=== PATIENT | male | born 1935 | race Caucasian/White ===

== ENCOUNTER 2022-12-21 09:29 | Outpatient (CLI) | payer MEDICARE, BC, SELFPAY ==
[2022-12-21 09:59] LABS: Basophils Absolute Auto 0.1 K/mm3 (0.0-0.1); Basophils Percent Auto 0.8 % (0.2-1.2); Eosinophils Absolute Auto 0.8 K/mm3 (0-0.3); Eosinophils Percent Auto 9.2 % (0-4.4); Hematocrit 51.5 % (42.0-52.0); Hemoglobin 16.4 g/dL (14.0-18.0); Immature Granulocyte Absolute 0.02 K/mm3 (0.00-0.031); Immature Granulocyte Percent A 0.2 % (0-0.5); Lymphocytes Absolute Auto 2.13 K/mm3 (0.9-3.2); Lymphocytes Percent Auto 25.8 % (18.3-44.2); Mean Corpuscular HGB Conc 31.8 g/dl (32-36); Mean Corpuscular Hemoglobin 30.7 pg (26-34); Mean Corpuscular Volume 96.4 fl (80-100); Mean Platelet Volume 9.6 fl (7.4-10.4); Monocytes Absolute Auto 0.8 K/mm3 (0.1-0.6); Monocytes Percent Auto 9.3 % (2.6-8.5); Neutrophils Absolute Auto 4.5 K/mm3 (1.3-6.7); Neutrophils Percent Auto 54.7 % (45.5-73.1); Platelet Count Result 225 k/mm3 (150-375); Red Blood Count 5.34 M/mm3 (4.6-6.20); Red Cell Distribution Width 14.1 % (11.5-14.5); White Blood Count 8.3 K/mm3 (4.5-10.0)
[2022-12-21 10:10] LABS: Alanine Aminotransferase 28 U/L (6-50); Albumin Level 4.3 g/dL (3.5-5.1); Alkaline Phosphatase 75 U/L (38-126); Anion Gap 9 mmol/L (8-16); Aspartate Amino Transferase 32 U/L (17-59); Bilirubin,Total 0.9 mg/dL (0.2-1.3); Blood Urea Nitrogen 18 mg/dL (9-20); Calcium 9.3 mg/dL (8.4-10.2); Carbon Dioxide 26 mmol/L (22-30); Chloride 104 mmol/L (98-107); Cholesterol 188 mg/dL (0-200); Estimated Glomerular Filt Rate 57; Glucose 101 mg/dL (65-110); HDL Direct 57 mg/dL; Potassium 3.8 mmol/L (3.4-5.0); Sodium 139 mmol/L (137-145); Triglycerides 162 mg/dL (<150)
[2022-12-21 10:21] LABS: LDL Cholesterol Direct 93 mg/dL
[2022-12-21 10:39] LABS: Total Triiodothyronine (T3) 0.83 NG/ML (0.97-1.69)
[2022-12-25 11:46] LABS: Vitamin D 1,25 (OH)2 Total 47 pg/mL (18-72); Vitamin D2 1,25 (OH)2 47 pg/mL; Vitamin D3 1,25 (OH)2 <8 pg/mL
== END 2022-12-21 09:30 | disposition home or self-care (01) ==
LOC: ANHLAB 09:29
PROVIDERS: PCP Family Medicine; Visit Provider Family Medicine
DX: E03.9 Hypothyroidism, unspecified (principal); I10 Essential (primary) hypertension; E55.9 Vitamin D deficiency, unspecified; E78.2 Mixed hyperlipidemia; E79.0 Hyperuricemia without signs of inflammatory arthritis and tophaceous disease
CPT/HCPCS: 36415; 80053; 80061; 82652; 84439; 84443; 84480; 84550; 85025

== ENCOUNTER 2023-01-15 12:02 | Outpatient (CLI) | payer MEDICARE, BC, SELFPAY ==
--- NOTE | ~2023-01-15 | XR_ITS ---
XR knee LT 3V DATE: 01/15/2023 13:13 INDICATION: Generalized left knee pain TECHNIQUE: 3 views COMPARISON: None FINDINGS: There is minimal periarticular spurring of the patella consistent with mild patellofemoral osteoarthritis. Joint spaces are relatively preserved. No fracture or dislocation or joint effusion is detected. No radiopaque intra-articular loose body or chondrocalcinosis are noted. No periosteal reaction or bone destruction. There are surgical clips along the posteromedial aspect of the knee. IMPRESSION: Mild patellofemoral osteoarthritis Reviewed, dictated and finalized at location A.
== END 2023-01-15 12:03 | disposition home or self-care (01) ==
PROVIDERS: PCP Family Medicine; Visit Provider Physician Assistant
DX: M17.12 Unilateral primary osteoarthritis, left knee (principal)
CPT/HCPCS: 73562

== ENCOUNTER 2023-08-16 11:25 | Outpatient (CLI) | payer MEDICARE, BC, SELFPAY ==
[2023-08-16 12:27] LABS: Free T4 Free Thyroxine 1.22 ng/mL (0.78-2.19)
== END 2023-08-16 11:26 | disposition home or self-care (01) ==
PROVIDERS: PCP Family Medicine; Visit Provider Physician Assistant
DX: E07.9 Disorder of thyroid, unspecified (principal)
CPT/HCPCS: 36415; 84439; 84443

== ENCOUNTER 2023-09-25 17:36 | Inpatient (IN) | payer MEDICARE, BC, SELFPAY ==
[2023-09-25] VITALS (12 sets, daily range): BP systolic 99–135; BP diastolic 43–68; PULSE 33–71; RESP 9–20; TEMP 36.1–37.4; O2SAT 96–100; BMI 30.3; BMI 30.1
--- NOTE | ~2023-09-25 | XR_ITS ---
EXAMINATION: XR chest 1V portable Exam Date/Time: 09/25/2023 17:40 CDT HISTORY: weakness Comparison: None. RESULT: Lines, tubes, and devices: Intact sternotomy wires. Cholecystectomy clips. Mediastinal surgical clip s. Lungs and pleura: Clear. Cardiomediastinal silhouette: Stable. Other: Air distended stomach. No acute osseous finding. IMPRESSION: No acute cardiopulmonary process. Mild gastric distention. Reviewed, dictated and finalized at location K.
--- NOTE | 2023-09-25 17:39 | ECG_ITS ---
Test Date: 2023-09-25 17:42:21 Measurements Intervals [place] Rate: 43 P: 63 DE: 228 QRS: 13 QRSD: 135 T: 90 QT: 548 QTc: 465 Interpretive Statements SINUS BRADYCARDIA WITH FIRST DEGREE AV BLOCK WITH OCCASIONAL SUPRAVENTRICULAR PREMATURE COMPLEXES INTRAVENTRICULAR CONDUCTION DELAY [130+ ms QRS DURATION] No previous ECG available for comparison Electronically Signed On 09-26-2023 13:32:12 CDT by Ted Iqbal M.D.
--- NOTE | 2023-09-25 17:40 | ED.WEAKNESS ---
HPI - Weakness General Chief complaint: Weakness Stated complaint: weakness Time Seen by Provider: 09/25/23 17:38 History of Present Illness HPI Narrative: Pt presents with generalized weakness and feeling lightheaded for a few days. Pt says he vomited 3 or 4 times last week and started feeling worse after that. Pt not vomiting now. Pt has some mild intermittent crampy abdominal pain, but not now. Pt denies diarrhea or fever. Related Data Home Medications Medication Instructions Recorded Confirmed rosuvastatin 40 mg tablet 40 mg PO DAILY 07/06/19 05/22/23 ranitidine HCl 150 mg tablet 150 mg PO DAILY 12/20/22 05/22/23 ([place] 150) fluticasone fur. 100 mcg-umeclid 1 inh inhalation DAILY 02/13/23 05/22/23 62.5 mcg-vilant 25 mcg inhalat.powder (Trelegy Ellipta) aspirin 81 mg tablet,delayed 81 mg PO DAILY 05/22/23 05/22/23 release Allergies Allergy/AdvReac Type Severity Reaction Status Date / Time Penicillins Allergy Mild RASH, Verified 05/22/23 14:18 ASTHMA Review of Systems Review of Systems: All systems reviewed & are unremarkable except as noted in HPI and below PMFSH Past Medical History Medical History Allergies Asthma Benign essential HTN Cardiac arrhythmia Coronary artery disease DVT (deep venous thrombosis) Heart disease History of stroke Hyperlipidemia Hypothyroidism (acquired) Kidney stones Left knee pain chronic deficiency left quad tendon at knee Pulmonary emboli Skin cancer Spinal stenosis of lumbar region Surgical History Surgical History History of cholecystectomy S/P IVC filter S/P triple vessel bypass (~2008) Status post hernia repair (~1994) 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) Family History Family History Unknown Hypertension Heart disease Social History Social History (Updated 05/22/23 @ 14:20 by Lily Padilla) Social History: Smoking status: Never smoker Second hand tobacco smoke exposure: No Alcohol intake: never Substance use: never Substance use type: does not use Do You Feel Safe in your Home?: Yes Lack of Transportation: No Lack of Food: Never True Current Housing: I Have Housing Concerned About Future Housing: No Difficulty Paying Gas/Electric Bills: No Difficulty Paying for Meds: No Currently Unemployed: YES Education: High School Diploma/GED Difficulty w/ Childcare or Family Care: No Living arrangements: alone Occupation/Education: retired Gender identity (if verbalized by the patient): Male Sexual Orientation (if Verbalized by the Patient): Straight or Heterosexual Exam Const: General: healthy appearing and no acute distress Nutritional Appearance: well nourished Orientation/consciousness: patient oriented x3 Limitations: no limitations HENMT: Head: normal to inspection Mouth: Yes dry mucous membranes Eyes: Conjunctivae: conjunctivae normal EOM: EOMs intact bilaterally Neck: Neck: normal visual inspection, no lymphadenopathy and no meningeal signs Resp: Effort & Inspection: normal respiratory effort Auscultation: clear to auscultation bilaterally Cardio: Rate: regular rate Rhythm: regular rhythm GI: GI Palp: Yes Soft to palpation and No Tenderness to palpation present (GI) Auscultation: normal bowel sounds Skin: General skin exam: normal color Rashes: no rashes Wounds: no wounds Neuro: General: patient oriented x3, moves all extremities, no meningeal signs and no focal motor deficits Cranial nerves: Yes Nystagmus not present Speech: normal speech Extrem: General: normal to inspection and no clubbing, cyanosis or edema Psych: Mental Status: mental status grossly normal Affect: normal affect Attitude: cooperative Course Vital Signs Vital sig
[2023-09-25] MEDS: SODIUM CHLORIDE 0.9% IV 1,000 ML 999 ML IV CONT (17:51)
[2023-09-25] MEDS: ONDANSETRON INJ 4 MG/2 ML VIAL IV PUSH (17:51)
[2023-09-25 17:57] LABS: Hematocrit 45.3 % (42.0-52.0); Hemoglobin 15.4 g/dL (14.0-18.0); Mean Corpuscular Hemoglobin 30.8 pg (26-34); Mean Corpuscular Volume 90.6 fl (80-100); Mean Platelet Volume 9.6 fl (7.4-10.4); Platelet Count Result 289 k/mm3 (150-375); Red Cell Distribution Width 14.2 % (11.5-14.5); White Blood Count 9.7 K/mm3 (4.5-10.0)
[2023-09-25 18:07] LABS: Lactic Acid Reflex 2.9 mmol/L (0.7-2.0)
[2023-09-25 18:08] LABS: INR 1.1; Prothrombin Time 14.1 Seconds (11.1-14.7)
[2023-09-25 18:09] LABS: Partial Thromboplastin Time 27.2 Seconds (22.3-36.8)
[2023-09-25 18:11] LABS: Alanine Aminotransferase 35 U/L (6-50); Albumin Level 3.8 g/dL (3.5-5.1); Alkaline Phosphatase 101 U/L (38-126); Aspartate Amino Transferase 77 U/L (17-59); Bilirubin,Total 0.9 mg/dL (0.2-1.3); Blood Urea Nitrogen 54 mg/dL (9-20); Calcium 8.9 mg/dL (8.4-10.2); Carbon Dioxide > 40 mmol/L (22-30); Chloride 85 mmol/L (98-107); Estimated CRCL calculation 23 ml/min; Estimated Glomerular Filt Rate 38; Glucose 340 mg/dL (65-110); Potassium 2.1 mmol/L (3.4-5.0); Sodium 133 mmol/L (137-145)
[2023-09-25 18:15] LABS: Eosinophils Absolute Manual 0.09 K/mm3 (0.02-0.50); Eosinophils Percent Manual 1 % (0-4); Lymphocytes Absolute Manual 1.74 K/mm3 (1.1-4.5); Monocytes Absolute Manual 0.58 K/mm3 (0.1-0.90); Monocytes Percent Manual 6 % (3-9); Neutrophils Percent Manual 75 % (46-73); Total Cells Counted 100
[2023-09-25 18:16] LABS: Platelet Estimate Adequate (Adequate); Schistocytes None Seen
[2023-09-25 18:17] LABS: Appearance Urine Clear (Clear); Bacteria Urine None Seen /hpf; Bilirubin Urine Negative (Negative); Blood Urine 2+ (Negative); Color Urine Yellow (Yellow); Glucose Urine UA 3+ mg/dL (Negative); Ketones Urine Negative (Negative); Leukocyte Esterase Ur Negative LEU/UL (Negative); Need Manual Microscopic Reviewed; Nitrate Urine Negative (Negative); Protein Urine Trace mg/dL (Negative); Specific Grav Ur 1.025 (1.001-1.035); Squamous Epithelial Cell Urine Occasional /hpf (Few); Urobilinogen Urine 0.2 mg/dL (<2.0); WBC Urine 0-5 /hpf (0-3)
[2023-09-25] MEDS: POTASSIUM CHLORIDE 20 MEQ ER TABLET PO (18:17)
[2023-09-25 18:19] LABS: Add Urine Microscopic? YES
[2023-09-25 18:20] LABS: NT Pro B Type Natriuretic Pept 987 pg/mL (19.9-100); Troponin I 0.063 ng/mL (0.000-0.034)
[2023-09-25 19:06] LABS: Alveolar/Arterial O2 Gradient 55.7 mmHg; Base Excess ABG 10.5 mEq/l (+/-2.0); Fractional Inspired Oxygen 28 %; HCO3 ABG 35.6 mEq/l (22.0-26.0); Oxygen Content ABG 20.2 %vol (16.0-22.0); PCO2 ABG 48.6 mmHg (35.0-45.0); PO2 ABG 86.6 mmHg (80.0-100.0); PO2 FiO2 Ratio Arterial Blood 3.09 %; Total Hemoglobin 14.9 g/dL (12.0-18.0); pH ABG 7.483 (7.350-7.450)
[2023-09-25 19:07] LABS: Device NASAL CANNULA; Site Drawn RIGHT RADIAL
[2023-09-25] MEDS: POTASSIUM CHLORIDE INJ 40 MEQ in SODIUM CHLORIDE 0.9% IV 500 ML 130 MEQ IVPB (19:16)
[2023-09-25] MEDS: SODIUM CHLORIDE 0.9% IV 1,000 ML 125 ML IV CONT (19:16)
--- NOTE | 2023-09-25 20:12 | PM.IMHP ---
H&P: HPI History of Present Illness Date/Time: 09/25/23 20:12 Chief Complaint: weakness Narrative: This is an 88-year-old male with past medical history significant for COPD/ asthma, hypertension, coronary artery disease, DVT, stroke, spinal stenosis. patient presents to the emergency room with complaints of generalized weakness, had episode of nausea vomiting, patient denies any diarrhea has had poor per orally intake, denies fevers rigors or chills, no cough no sputum production, no shortness of breath, no cough, no leg swelling, no syncope or near syncope. Preliminary workup was significant for several electrolyte abnormalities EXAMINATION: XR chest 1V portable Exam Date/Time: 09/25/2023 17:40 CDT HISTORY: weakness Comparison: None. RESULT: Lines, tubes, and devices: Intact sternotomy wires. Cholecystectomy clips. Mediastinal surgical clips. Lungs and pleura: Clear. Cardiomediastinal silhouette: Stable. Other: Air distended stomach. No acute osseous finding. IMPRESSION: No acute cardiopulmonary process. Mild gastric distention. 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) Family History Family History Unknown Hypertension Heart disease Social History Social History (Updated 05/22/23 @ 14:20 by Lily Padilla) Social History: Smoking status: Never smoker Second hand tobacco smoke exposure: No Alcohol intake: former Substance use: never Substance use type: does not use Do You Feel Safe in your Home?: Yes Lack of Transportation: No Lack of Food: Never True Current Housing: I Do Not Have Housing Concerned About Future Housing: No Difficulty Paying Gas/Electric Bills: No Difficulty Paying for Meds: No Currently Unemployed: No Education: High School Diploma/GED Difficulty w/ Childcare or Family Care: No Living arrangements: alone Occupation/Education: retired Gender identity (if verbalized by the patient): Male Sexual Orientation (if Verbalized by the Patient): Straight or Heterosexual Spiritual care concerns: No Meds Home Medications and Allergies Home Medications Medication Instructions Recorded Confirmed Type rosuvastatin 40 mg tablet 40 mg PO DAILY 07/06/19 09/25/23 History carvedilol 3.125 mg tablet 3.125 mg PO Q12H #180 tabs 12/20/22 09/25/23 Rx fluticasone fur. 100 mcg-umeclid 1 inh inhalation DAILY 02/13/23 09/25/23 History 62.5 mcg-vilant 25 mcg inhalat.powder (Trelegy Ellipta) aspirin 81 mg tablet,delayed 81 mg PO DAILY 05/22/23 09/25/23 History release Synthroid 125 mcg tablet 125 mcg PO DAILY #90 tabs 08/13/23 09/25/23 Rx (levothyroxine) ergocalciferol (vitamin D2) 1,250 1,250 mcg PO WEEKLY 09/25/23 09/25/23 History mcg (50,000 unit) capsule furosemide 40 mg tablet 40 mg PO BID 09/25/23 09/25/23 History levothyroxine 125 mcg tablet 125 mcg PO DAILY 09/25/23 09/25/23 History (Synthroid) potassium chloride 20 mEq 20 meq PO DAILY 09/25/23 09/25/23 History tablet,extended release(part/cryst) sotagliflozin 200 mg tablet 200 mg PO DAILY 09/25/23 09/25/23 History (Inpefa) Allerg
[2023-09-25 20:55] LABS: Reflex Lactic Acid Yes or No Add Lactic
--- NOTE | 2023-09-25 21:32 | ADMGEN ---
This patient, Chase Perez, was admitted to IMU Room 203-01. Patient/family oriented to hospital policies and general routines including ID bracelet, bed and alarms, visiting hours, pain management, procedures, bathroom and other care routines, personal items, smoking policy, room service/diet, and visiting hours. Information on how to activate the Rapid Response Team has been discussed. Patient/Family are encouraged to report perceived risks to care and to ask questions if they do not understand what they are told or what they should do.
[2023-09-25 22:12] LABS: Lactic Acid 1.7 mmol/L (0.7-2.0)
[2023-09-25 22:33] LABS: Troponin I 0.067 ng/mL (0.000-0.034)
[2023-09-25] MEDS: carvediloL 3.125 MG TABLET PO (22:58)
[2023-09-26] VITALS (8 sets, daily range): BP systolic 117–120; BP diastolic 52–58; PULSE 49–65; RESP 16–18; TEMP 36.2–36.7; O2SAT 94–100
[2023-09-26 00:52] LABS: Anion Gap 6 mmol/L (4-12); Blood Urea Nitrogen 47 mg/dL (9-20); Calcium 8.6 mg/dL (8.4-10.2); Carbon Dioxide 35 mmol/L (22-30); Chloride 96 mmol/L (98-107); Estimated CRCL calculation 32 ml/min; Estimated Glomerular Filt Rate 48; Glucose 176 mg/dL (65-110); Potassium 2.5 mmol/L (3.4-5.0); Sodium 137 mmol/L (137-145)
[2023-09-26 01:10] LABS: Troponin I 0.069 ng/mL (0.000-0.034)
[2023-09-26] MEDS: POTASSIUM CHLORIDE INJ 40 MEQ in SODIUM CHLORIDE 0.9% IV 500 ML 130 MEQ IVPB (01:29)
[2023-09-26] MEDS: POTASSIUM CHLORIDE 20 MEQ PACKET (FOR LIQUID) 40 MEQ PO (02:19)
--- NOTE | 2023-09-26 05:10 | PC.NURSE ---
Patient had a 5.[address] Feng notified and received orders to administer 40 mEq PO K in addition to the 40 mEq K rider patient is receiving. Will continue to monitor.
[2023-09-26] MEDS: LEVOTHYROXINE SODIUM 125 MCG TABLET PO (05:49)
[2023-09-26 06:37] LABS: Hematocrit 43.6 % (42.0-52.0); Mean Corpuscular HGB Conc 32.1 g/dl (32-36); Mean Corpuscular Volume 93.4 fl (80-100); Mean Platelet Volume 9.4 fl (7.4-10.4); Platelet Count Result 245 k/mm3 (150-375); Red Blood Count 4.67 M/mm3 (4.6-6.20); Red Cell Distribution Width 14.4 % (11.5-14.5); White Blood Count 8.4 K/mm3 (4.5-10.0)
[2023-09-26 06:49] LABS: Alanine Aminotransferase 32 U/L (6-50); Alkaline Phosphatase 78 U/L (38-126); Anion Gap 2 mmol/L (4-12); Aspartate Amino Transferase 63 U/L (17-59); Bilirubin,Total 0.8 mg/dL (0.2-1.3); Blood Urea Nitrogen 37 mg/dL (9-20); Calcium 8.1 mg/dL (8.4-10.2); Carbon Dioxide 32 mmol/L (22-30); Chloride 104 mmol/L (98-107); Estimated CRCL calculation 34 ml/min; Estimated Glomerular Filt Rate 52; Glucose 163 mg/dL (65-110); Magnesium 2.7 mg/dL (1.6-2.3); Potassium 3.5 mmol/L (3.4-5.0); Sodium 138 mmol/L (137-145)
[2023-09-26] MEDS: FLUTICASONE/UMECLIDIN/VILANTER 100-62.5-25 MCG ELLIPTA 1 PUFF INHALATION (08:12)
[2023-09-26] MEDS: ASPIRIN 81 MG ENTERIC TABLET PO (08:34)
--- NOTE | 2023-09-26 10:28 | PM.DS ---
DS: Admitting Diagnosis Discharge Date September 26, 2023 Admitting Diagnosis Electrolyte abnormality, nausea, vomiting. Weakness DS: Discharge Diagnosis Discharge Diagnosis (1) Acute hypokalemia: Code(s): E87.6 - Hypokalemia Status: Acute (2) Acute dehydration: Code(s): E86.0 - Dehydration Status: Acute (3) Acute renal insufficiency: Code(s): N28.9 - Disorder of kidney and ureter, unspecified Status: Acute (4) Elevated troponin: Code(s): R79.89 - Other specified abnormal findings of blood chemistry Status: Acute (5) COPD (chronic obstructive pulmonary disease): Code(s): J44.9 - Chronic obstructive pulmonary disease, unspecified Status: Acute (6) Bradycardia: Code(s): R00.1 - Bradycardia, unspecified Status: Acute DS: Summary Hospital Course Hospital Course: 88-year-old male with PMH lower extremity edema, CAD status post CABG, severe degenerative spine disease with spinal stenosis, obesity, COPD from smoke exposure while working at [employer], hypothyroidism, hypertension, hyperlipidemia, 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 The patient reports he has been weak for a few days prior to admission after vomiting a large amount. Upon arrival to [facility] on 09/25/2023 was found to have an acute kidney injury, dehydration, severe hypokalemia at 2.1 and magnesium 3.0. Elevated troponin at 0.067. Subsequently admitted for electrolyte imbalance. The next day on 09/26/2023 patient is sitting up in bed comfortable and just ate his full breakfast along with 3 cups of orange juice. Reports no nausea or vomiting or abdominal pain. He also reports passing flatness in BM. Chest x-ray demonstrates no acute cardiopulmonary process and mild gastric distension. Patient feels much stronger, he typically ambulates with a cane and is able to ambulate. Lives at home alone and denies any impairments of social drivers of health such as difficulty with utilities, food, transportation, interpersonal safety, or housing instability. Potassium has improved to 3.5 after oral and IV supplementation. He is on a KCL 20 mEq which will be continued. This was likely started due to him being started on furosemide for lower extremity edema. Heart failure workup is currently ongoing in the outpatient setting. He was volume resuscitated while inpatient and his EDOUARD did improve. Troponins remain flat and the patient denied chest pain. EKG did not demonstrate acute ischemia. Patient also did not want further workup/procedural intervention for his heart. EKG and telemetry demonstrated mild sinus bradycardia with supraventricular premature complexes. He is on Coreg 3.5125 mg p.o. b.i.d. and that has been discontinued. Adverse effects, risk and benefits of medications and stoppage of medications have been discussed with the patient and he agrees to return to his [facility] in [facility] within 2 weeks. Also agrees to follow-up with PCP within 2 weeks. Patient was full code. Time Spent with Patient Time attestation: Total time spent providing and/or coordinating discharge services: Exam Const: General: comfortable and no acute distress Other: Obese male Eyes: Pupils: Equal, round and reactive pupils present Neck: Neck: supple Resp: Effort & Inspection: normal respiratory effort Auscultation: clear to auscultation bilaterally Cardio: Rate: regular rate Rhythm: regular rhythm GI: GI Palp: Yes Soft to palpation Auscultation: normal bowel sounds Extrem: General: edema (Trace pitting edema bilateral lower extremities) DS: Data Data Completed and Pending Labs on day of discharge: Labs from last 24 hours 09/26/23 09/26/23 09/25/23 06:31 00:30 21:57 WBC 8.4 RBC 4.67 Hgb 14.0 Hct 43.6 MCV 93.4 MCH 30.0 MCHC 32.1 RDW 14.4 Plt Count 245 MPV 9.4 Immature Gran % (Auto) Neut % (Auto) Lymph % (Auto
== END 2023-09-26 12:16 | disposition home or self-care (01) | DRG 641 ==
LOC: ANHED 19:01 → ANHIMU 19:59
PROVIDERS: Internal Medicine; Student in an Organized Health Care Education/Training Program; Admitting Provider Hospitalist; Emergency Provider Emergency Medicine; PCP Family Medicine; Visit Provider Hospitalist
DX: E87.6 Hypokalemia (principal); E86.0 Dehydration; I10 Essential (primary) hypertension; I25.10 Atherosclerotic heart disease of native coronary artery without angina pectoris; N28.9 Disorder of kidney and ureter, unspecified; J44.9 Chronic obstructive pulmonary disease, unspecified; R79.89 Other specified abnormal findings of blood chemistry; E78.5 Hyperlipidemia, unspecified; E03.9 Hypothyroidism, unspecified; Z96.643 Presence of artificial hip joint, bilateral; Z86.711 Personal history of pulmonary embolism; Z86.718 Personal history of other venous thrombosis and embolism; Z86.73 Personal history of transient ischemic attack (TIA), and cerebral infarction without residual deficits; Z87.442 Personal history of urinary calculi; Z79.82 Long term (current) use of aspirin; Z95.1 Presence of aortocoronary bypass graft
CPT/HCPCS: 36415; 36600; 71045; 80048; 80053; 81001; 82805; 83605; 83735; 83880; 84100; 84484; 85025; 85027; 85610; 85730; 93005; 94640; 96374; 99285; A9270; J2405; J3480; J7030; J7040